=== PATIENT | female | born 1970 | race Caucasian/White ===

== ENCOUNTER → 2019-05-28 17:50 | Outpatient (CLI) | payer OTHER, SELFPAY ==
--- NOTE | 2019-05-28 | DI.MG.S_ITS ---
BILATERAL DIGITAL SCREENING MAMMOGRAM 3D/2D WITH CAD WITH AUGMENTATION: 05/28/2019 CLINICAL: Routine screening. Comparison is made to exams dated: 08/11/2017 mammogram, 05/12/2016 mammogram, and 11/13/2014 mammogram - [facility]. The tissue of both breasts is extremely dense, which lowers the sensitivity of mammography. Current study was also evaluated with a Computer Aided Detection (CAD) system. Bilateral breast implants are stable. No significant masses, calcifications, or other findings are seen in either breast. There has been no significant interval change. IMPRESSION: NEGATIVE There is no mammographic evidence of malignancy. A 1 year screening mammogram is recommended. This exam was interpreted at Station ID: [id number]. NOTE: For mammograms, a report in lay terms will be sent to the patient. Approximately 15% of breast malignancies will not be visualized mammographically. In the management of a palpable breast mass, a negative mammogram must not discourage biopsy of a clinically suspicious lesion. Electronically Signed By: Martin king/ck:05/28/2019 19:31:01 letter sent: Normal Exam ACR BI-RADS Category 1: Negative [id number]
== END ==
PROVIDERS: Family Provider Family Medicine; PCP Family Medicine; Visit Provider Family Medicine
DX: Z12.31 Encounter for screening mammogram for malignant neoplasm of breast (principal)
CPT/HCPCS: 77063; 77067

== ENCOUNTER 2019-07-02 07:30 | Outpatient (RCR) | payer OTHER, SELFPAY ==
--- NOTE | 2019-06-21 10:49 | PT.OIE ---
Current Diagnoses Stress incontinence (female) (male) (06/21/19) Visit Care Team Role Provider Type Georgina Donnelly MD Attending Provider Physician Family Provider Primary Care Provider Specialty: Family Practice Address: [address] [place] [address], [facility] Email: Physical Therapy Initial Evaluation PT-OP-A Visit Information Start: 06/21/19 06:56 Freq: Status: Active Protocol: Document 06/21/19 08:15 AMB (Rec: 06/21/19 16:17 AMB [email or web address]) Out-Patient Physical Therapy Visit Information Visit Information Visit Type Initial Evaluation Visit Start Time 08:15 Visit Stop Time 08:55 Total Visit Minutes 40 Visit Number 1 PT-OP-B Current Condition Start: 06/21/19 06:56 Freq: Status: Active Protocol: Document 06/21/19 08:18 AMB (Rec: 06/21/19 08:50 AMB [id number]) Current Condition History of Current Condition Onset Date 8 years ago Current Complaints Leaking urine while standing History of Current Condition Pt denies leaking before her C -section 8 years ago- goes for runs but doesn't leak with that. Has been noticing worsening leaking with sneezing while standing and intercourse. Denies fecal incontinence/ constipation. Treatment Goals Patient/Caregiver Goals Sneeze without leaking Prior Functional Status Baseline Function- ADL's Independent Baseline Function- Mobility Independent Current Functional Impairments (Reported) Functional Limitations- ADL's Wears pads Functional Limitations- Recreation/ [place] can also cause Hobbies leaks Personal Factors Other Personal Factors That May Effect Lives on [facility] (long Therapy/Recovery commute to PT) PT-OP-C Subjective Start: 06/21/19 06:56 Freq: Status: Active Protocol: Document 06/21/19 08:15 AMB (Rec: 06/22/19 11:40 AMB [email or web address]) Patient Questionnaires Pelvic Pain and Urgency/Frequency Patient Symptom Scale Pelvic Pain Score 1 PT-OP-I Pelvic Floor Start: 06/21/19 06:56 Freq: Status: Active Protocol: Document 06/21/19 08:15 AMB (Rec: 06/22/19 11:40 AMB [email or web address]) Pelvic Floor Assessment Urine Pelvic Floor Surgery No Leakage Size Medium Leakage Cause Cough,Sneeze Other Leakage Causes specifically denies leaking with running Voiding Frequency 3-4x/day Nocturia 1 Urine Pad Type Panty Liner Bowel Other Bowel Symptoms denies constipation Pelvic Clock Pelvic Clock Other denies pain with palpation throughout Prolapse Cystocele Grade 1 Perineal Descent Resting Absent Bearing Present SEMG (uV) Baseline 3 Quick Contraction 12.3 10 Second Contraction 8.2 Recruitment Pattern Good Relaxation Good Holding Fair Stability of Hold Fair SEMG Stability of Rest Good Contraction Ability Voluntary Contraction Moderate Voluntary Relaxation Moderate Manual Muscle Testing Left 2 Manual Muscle Testing Right 2 Manual Muscle Testing Anterior 2 Manual Muscle Testing Posterior 2 Muscle Endurance (Seconds) 7 Number of Quick Contractions In 10 10 Seconds Comments Pelvic Floor Comments contraction fades after 5 seconds, but overall good isolation, used abdominal muscles just slightly PT-OP-T Assessment and Plan Start: 06/21/19 06:56 Freq: Status: Active Protocol: Document 06/21/19 08:15 AMB (Rec: 06/26/19 07:37 AMB [id number]) Physical Therapy Assessment Rehab Potential Rehabilitation Potential Good Evaluation Complexity Number of Personal Factors/Comorbidities 1-2 Number of Body Systems Impaired 1-2 Clinical Presentation at Evaluation Stable Impairments Impairments Functional Activities,Strength Goals Two Impairment pelvic floor strength Short Term Goal (STG) Serena will improve her pelvic floor strength to 4/5 in all planes. STG Duration 4 weeks [employer] Engineer Goal (LTG) Serena will maintain her pelvic floor strength in standing for 10 seconds. LTG Duration 8 weeks One Impairment continence Short Term Goal (STG) Serena will sneeze while seated without leaking. STG Duration 4 weeks Alf Goal (LTG) Serena will sneeze while walking without leaking. LTG Duration 8 weeks Assessment Summary Assessment Serena attends PT with stress incontinence especially with sneezing while standing. Interestingly she denies leaking while running. Serena had good understanding of her pelvic floor muscles in supine, but did fade quickly. She will benefit from education in how to appropriately strengthen her pelvic floor, hopefully moving quickly from supine into a standing position. Physical Therapy Plan Frequency and Duration Frequency of Treatment 1x/Week Duration of Treatment 8 weeks Plan of Care Start Date 06/21/19 Plan of Care End Date 08/16/19 Therapeutic Interventions Therapeutic Interventions Home Exercise Program,Manual Therapy,Neuromuscular Re- education,Self-Care/Home Management,Therapeutic Activities,Therapeutic Exercises Modalities Biofeedback,Electric Stimulation Next Visit Focus/Plan Next Note Type Treatment Note Next Visit Plan Continue with sEMG, trial NMES if necessary, working into sitting, standing, quadruped quickly given pt's strength, but focus on hold time.
--- NOTE | 2019-06-21 10:50 | PT.OPPOC ---
Current Diagnoses Stress incontinence (female) (male) (06/21/19) Visit Care Team Role Provider Type Georgina Donnelly MD Attending Provider Physician Family Provider Primary Care Provider Specialty: Family Practice Address: [address] [place] [address], [facility] Email: Plan Of Care PT-OP-T Assessment and Plan Start: 06/21/19 06:56 Freq: Status: Active Protocol: Document 06/21/19 08:15 AMB (Rec: 06/26/19 07:37 AMB [id number]) Physical Therapy Assessment Rehab Potential Rehabilitation Potential Good Evaluation Complexity Number of Personal Factors/Comorbidities 1-2 Number of Body Systems Impaired 1-2 Clinical Presentation at Evaluation Stable Impairments Impairments Functional Activities,Strength Goals Two Impairment pelvic floor strength Short Term Goal (STG) Serena will improve her pelvic floor strength to 4/5 in all planes. STG Duration 4 weeks Process Helper Goal (LTG) Serena will maintain her pelvic floor strength in standing for 10 seconds. LTG Duration 8 weeks One Impairment continence Short Term Goal (STG) Serena will sneeze while seated without leaking. STG Duration 4 weeks Process Helper Goal (LTG) Serena will sneeze while walking without leaking. LTG Duration 8 weeks Assessment Summary Assessment Serena attends PT with stress incontinence especially with sneezing while standing. Interestingly she denies leaking while running. Serena had good understanding of her pelvic floor muscles in supine, but did fade quickly. She will benefit from education in how to appropriately strengthen her pelvic floor, hopefully moving quickly from supine into a standing position. Physical Therapy Plan Frequency and Duration Frequency of Treatment 1x/Week Duration of Treatment 8 weeks Plan of Care Start Date 06/21/19 Plan of Care End Date 08/16/19 Therapeutic Interventions Therapeutic Interventions Home Exercise Program,Manual Therapy,Neuromuscular Re- education,Self-Care/Home Management,Therapeutic Activities,Therapeutic Exercises Modalities Biofeedback,Electric Stimulation Next Visit Focus/Plan Next Note Type Treatment Note Next Visit Plan Continue with sEMG, trial NMES if necessary, working into sitting, standing, quadruped quickly given pt's strength, but focus on hold time. Plan of Care Dates Plan of Care Start Date 06/21/19 Plan of Care End Date 08/16/19 Please Sign and Return: I have reviewed this Plan of Care and certify that the skilled therapy services above are required to meet the patient?s needs. Physician Signature Date Printed Name and Credentials Clinical Instructor Signature Printed Name and Credentials
--- NOTE | 2019-06-27 10:49 | PT.OIE ---
Current Diagnoses Stress incontinence (female) (male) (06/21/19) Visit Care Team Role Provider Type Georgina Donnelly MD Attending Provider Physician Family Provider Primary Care Provider Specialty: Family Practice Address: [address] [place] [address], [facility] Email: Physical Therapy Initial Evaluation PT-OP-A Visit Information Start: 06/21/19 06:56 Freq: Status: Active Protocol: Document 06/21/19 08:15 AMB (Rec: 06/21/19 16:17 AMB [email or web address]) Out-Patient Physical Therapy Visit Information Visit Information Visit Type Initial Evaluation Visit Start Time 08:15 Visit Stop Time 08:55 Total Visit Minutes 40 Visit Number 1 PT-OP-B Current Condition Start: 06/21/19 06:56 Freq: Status: Active Protocol: Document 06/21/19 08:18 AMB (Rec: 06/21/19 08:50 AMB [id number]) Current Condition History of Current Condition Onset Date 8 years ago Current Complaints Leaking urine while standing History of Current Condition Pt denies leaking before her C -section 8 years ago- goes for runs but doesn't leak with that. Has been noticing worsening leaking with sneezing while standing and intercourse. Denies fecal incontinence/ constipation. Treatment Goals Patient/Caregiver Goals Sneeze without leaking Prior Functional Status Baseline Function- ADL's Independent Baseline Function- Mobility Independent Current Functional Impairments (Reported) Functional Limitations- ADL's Wears pads Functional Limitations- Recreation/ [place] can also cause Hobbies leaks Personal Factors Other Personal Factors That May Effect Lives on [facility] (long Therapy/Recovery commute to PT) PT-OP-C Subjective Start: 06/21/19 06:56 Freq: Status: Active Protocol: Document 06/21/19 08:15 AMB (Rec: 06/22/19 11:40 AMB [email or web address]) Patient Questionnaires Pelvic Pain and Urgency/Frequency Patient Symptom Scale Pelvic Pain Score 1 PT-OP-I Pelvic Floor Start: 06/21/19 06:56 Freq: Status: Active Protocol: Document 06/21/19 08:15 AMB (Rec: 06/22/19 11:40 AMB [email or web address]) Pelvic Floor Assessment Urine Pelvic Floor Surgery No Leakage Size Medium Leakage Cause Cough,Sneeze Other Leakage Causes specifically denies leaking with running Voiding Frequency 3-4x/day Nocturia 1 Urine Pad Type Panty Liner Bowel Other Bowel Symptoms denies constipation Pelvic Clock Pelvic Clock Other denies pain with palpation throughout Prolapse Cystocele Grade 1 Perineal Descent Resting Absent Bearing Present SEMG (uV) Baseline 3 Quick Contraction 12.3 10 Second Contraction 8.2 Recruitment Pattern Good Relaxation Good Holding Fair Stability of Hold Fair SEMG Stability of Rest Good Contraction Ability Voluntary Contraction Moderate Voluntary Relaxation Moderate Manual Muscle Testing Left 2 Manual Muscle Testing Right 2 Manual Muscle Testing Anterior 2 Manual Muscle Testing Posterior 2 Muscle Endurance (Seconds) 7 Number of Quick Contractions In 10 10 Seconds Comments Pelvic Floor Comments contraction fades after 5 seconds, but overall good isolation, used abdominal muscles just slightly PT-OP-T Assessment and Plan Start: 06/21/19 06:56 Freq: Status: Active Protocol: Document 06/21/19 08:15 AMB (Rec: 06/26/19 07:37 AMB [id number]) Physical Therapy Assessment Rehab Potential Rehabilitation Potential Good Evaluation Complexity Number of Personal Factors/Comorbidities 1-2 Number of Body Systems Impaired 1-2 Clinical Presentation at Evaluation Stable Impairments Impairments Functional Activities,Strength Goals Two Impairment pelvic floor strength Short Term Goal (STG) Serena will improve her pelvic floor strength to 4/5 in all planes. STG Duration 4 weeks Retail Loan Originator Assistant Goal (LTG) Serena will maintain her pelvic floor strength in standing for 10 seconds. LTG Duration 8 weeks One Impairment continence Short Term Goal (STG) Serena will sneeze while seated without leaking. STG Duration 4 weeks Fci Goal (LTG) Serena will sneeze while walking without leaking. LTG Duration 8 weeks Assessment Summary Assessment Serena attends PT with stress incontinence especially with sneezing while standing. Interestingly she denies leaking while running. Serena had good understanding of her pelvic floor muscles in supine, but did fade quickly. She will benefit from education in how to appropriately strengthen her pelvic floor, hopefully moving quickly from supine into a standing position. Physical Therapy Plan Frequency and Duration Frequency of Treatment 1x/Week Duration of Treatment 8 weeks Plan of Care Start Date 06/21/19 Plan of Care End Date 08/16/19 Therapeutic Interventions Therapeutic Interventions Home Exercise Program,Manual Therapy,Neuromuscular Re- education,Self-Care/Home Management,Therapeutic Activities,Therapeutic Exercises Modalities Biofeedback,Electric Stimulation Next Visit Focus/Plan Next Note Type Treatment Note Next Visit Plan Continue with sEMG, trial NMES if necessary, working into sitting, standing, quadruped quickly given pt's strength, but focus on hold time.
--- NOTE | 2019-07-02 10:56 | PT.OTN ---
Current Diagnoses Stress incontinence (female) (male) (07/02/19) Physical Therapy Treatment Note PT-OP-A Visit Information Start: 06/21/19 06:56 Freq: Status: Active Protocol: Document 07/02/19 07:30 AMB (Rec: 07/02/19 07:45 AMB [id number]) Out-Patient Physical Therapy Visit Information Visit Information Visit Type Treatment Note Visit Start Time 07:30 Visit Stop Time 08:15 Total Visit Minutes 45 Visit Number 2 PT-OP-B Current Condition Start: 06/21/19 06:56 Freq: Status: Active Protocol: Document 06/21/19 08:18 AMB (Rec: 06/21/19 08:50 AMB [id number]) Current Condition History of Current Condition Onset Date 8 years ago Current Complaints Leaking urine while standing History of Current Condition Pt denies leaking before her C -section 8 years ago- goes for runs but doesn't leak with that. Has been noticing worsening leaking with sneezing while standing and intercourse. Denies fecal incontinence/ constipation. Treatment Goals Patient/Caregiver Goals Sneeze without leaking Prior Functional Status Baseline Function- ADL's Independent Baseline Function- Mobility Independent Current Functional Impairments (Reported) Functional Limitations- ADL's Wears pads Functional Limitations- Recreation/ [place] can also cause Hobbies leaks Personal Factors Other Personal Factors That May Effect Lives on [facility] (long Therapy/Recovery commute to PT) PT-OP-C Subjective Start: 06/21/19 06:56 Freq: Status: Active Protocol: Document 07/02/19 07:30 AMB (Rec: 07/02/19 07:45 AMB [id number]) OP-PT Subjective Patient Comments Patient Comments Pt has mostly been doing her exercises in seated PT-OP-I Pelvic Floor Start: 06/21/19 06:56 Freq: Status: Active Protocol: Document 06/21/19 08:15 AMB (Rec: 06/22/19 11:40 AMB [email or web address]) Pelvic Floor Assessment Urine Pelvic Floor Surgery No Leakage Size Medium Leakage Cause Cough,Sneeze Other Leakage Causes specifically denies leaking with running Voiding Frequency 3-4x/day Nocturia 1 Urine Pad Type Panty Liner Bowel Other Bowel Symptoms denies constipation Pelvic Clock Pelvic Clock Other denies pain with palpation throughout Prolapse Cystocele Grade 1 Perineal Descent Resting Absent Bearing Present SEMG (uV) Baseline 3 Quick Contraction 12.3 10 Second Contraction 8.2 Recruitment Pattern Good Relaxation Good Holding Fair Stability of Hold Fair SEMG Stability of Rest Good Contraction Ability Voluntary Contraction Moderate Voluntary Relaxation Moderate Manual Muscle Testing Left 2 Manual Muscle Testing Right 2 Manual Muscle Testing Anterior 2 Manual Muscle Testing Posterior 2 Muscle Endurance (Seconds) 7 Number of Quick Contractions In 10 10 Seconds Comments Pelvic Floor Comments contraction fades after 5 seconds, but overall good isolation, used abdominal muscles just slightly PT-OP-Q Treatments Start: 06/21/19 06:56 Freq: Status: Active Protocol: Document 07/02/19 07:30 AMB (Rec: 07/02/19 10:53 AMB [email or web address]) Therapeutic Exercises Supine Exercises 1 Supine Exercise Name roll in/roll out Resistance #1 t band Reps/Minutes 10 ea with pf and breathing cues Standing Exercises 1 Standing Exercise Name standing with WBOS and stride stance Comments 5 and quick flicks Other Exercises 2 Other Exercise Name quadruped UE extension Comments long holds 1 Other Exercise Name quadruped Comments long holds and quick flicks Neuro Re-Education Treatment Other Activities 1 Details sEMG with long holds and quick flicks Comments max 12.8, avg 7 PT-OP-T Assessment and Plan Start: 06/21/19 06:56 Freq: Status: Active Protocol: Document 07/02/19 07:30 AMB (Rec: 07/02/19 10:53 AMB [email or web address]) Physical Therapy Assessment Assessment Summary Assessment Serena had good control in hooklying, quadruped and standing are more challenging Physical Therapy Plan Next Visit Focus/Plan Next Note Type Treatment Note Next Visit Plan See how pt tolerates standing with movement, UE lifting vs mini squat/lunge.
--- NOTE | 2019-09-30 08:15 | PT.OPDS ---
Current Diagnoses Stress incontinence (female) (male) (07/02/19) Visit Care Team Role Provider Type Georgina Donnelly MD Attending Provider Physician Family Provider Primary Care Provider Specialty: Family Practice Address: [address] [place] [address], [facility] Email: Visit Number Visit Number 2 Discharge Summary PT-OP-B Current Condition Start: 06/21/19 06:56 Freq: Status: Active Protocol: Document 06/21/19 08:18 AMB (Rec: 06/21/19 08:50 AMB [id number]) Current Condition History of Current Condition Onset Date 8 years ago Current Complaints Leaking urine while standing History of Current Condition Pt denies leaking before her C -section 8 years ago- goes for runs but doesn't leak with that. Has been noticing worsening leaking with sneezing while standing and intercourse. Denies fecal incontinence/ constipation. Treatment Goals Patient/Caregiver Goals Sneeze without leaking Prior Functional Status Baseline Function- ADL's Independent Baseline Function- Mobility Independent Current Functional Impairments (Reported) Functional Limitations- ADL's Wears pads Functional Limitations- Recreation/ [place] can also cause Hobbies leaks Personal Factors Other Personal Factors That May Effect Lives on [facility] (long Therapy/Recovery commute to PT) PT-OP-C Subjective Start: 06/21/19 06:56 Freq: Status: Active Protocol: Document 07/02/19 07:30 AMB (Rec: 07/02/19 07:45 AMB [id number]) OP-PT Subjective Patient Comments Patient Comments Pt has mostly been doing her exercises in seated PT-OP-I Pelvic Floor Start: 06/21/19 06:56 Freq: Status: Active Protocol: Document 06/21/19 08:15 AMB (Rec: 06/22/19 11:40 AMB [email or web address]) Pelvic Floor Assessment Urine Pelvic Floor Surgery No Leakage Size Medium Leakage Cause Cough,Sneeze Other Leakage Causes specifically denies leaking with running Voiding Frequency 3-4x/day Nocturia 1 Urine Pad Type Panty Liner Bowel Other Bowel Symptoms denies constipation Pelvic Clock Pelvic Clock Other denies pain with palpation throughout Prolapse Cystocele Grade 1 Perineal Descent Resting Absent Bearing Present SEMG (uV) Baseline 3 Quick Contraction 12.3 10 Second Contraction 8.2 Recruitment Pattern Good Relaxation Good Holding Fair Stability of Hold Fair SEMG Stability of Rest Good Contraction Ability Voluntary Contraction Moderate Voluntary Relaxation Moderate Manual Muscle Testing Left 2 Manual Muscle Testing Right 2 Manual Muscle Testing Anterior 2 Manual Muscle Testing Posterior 2 Muscle Endurance (Seconds) 7 Number of Quick Contractions In 10 10 Seconds Comments Pelvic Floor Comments contraction fades after 5 seconds, but overall good isolation, used abdominal muscles just slightly PT-OP-T Assessment and Plan Start: 06/21/19 06:56 Freq: Status: Active Protocol: Document 09/30/19 08:14 AMB (Rec: 09/30/19 08:15 AMB [email or web address]) Physical Therapy Assessment Assessment Summary Assessment Serena attended two appointments and then no showed 3 more. She has not called the clinic back since being seen in June, she is therefore discharged at this time. Physical Therapy Plan Discharge Physical Therapy Discharge Reasons No Longer Attending PT
== END 2019-10-11 10:55 ==
LOC: PHYS 07:30
PROVIDERS: Family Provider Family Medicine; PCP Family Medicine; Visit Provider Family Medicine
DX: N39.3 Stress incontinence (female) (male) (principal)
CPT/HCPCS: 97110; 97112; 97161